=== PATIENT | male | born 1960 | race Caucasian/White ===

== ENCOUNTER 2019-04-06 06:47 | Day surgery (SDC) | payer BC ==
[~2019-04-06] VITALS: Ht 177.8 cm; Wt 80.5 kg
[~2019-04-06 06:47] MED LIST: ACIPHEX20 MG PO; LORTAB 5/500 501 TAB PO; MOTRIN 800800 MG/TAB PO; NORCO PO; NORVASC2.5 MG PO; NYQUIL; TYLENOL 500MG500 MG PO; VYTORIN; ZOCOR 40MG40 MG PO; vitorin
[2019-04-06 07:08] VITALS: BP 134/84; PULSE 69; TEMP 97.5
[2019-04-06] MEDS ORDERED: LIPITOR 40MG TA40 MG PO (07:28)
[2019-04-06] MEDS ORDERED: LEXAPRO 10MG10 MG PO (07:29)
[2019-04-06] MEDS ORDERED: GLUCOPHAGE500 MG/TAB PO (07:29)
[2019-04-06] MEDS ORDERED: NAPROSYN500 MG PO (07:30)
[2019-04-06] MEDS ORDERED: AMBIEN 10MG10 MG PO (07:30)
[2019-04-06 09:34] VITALS: BP 113/53; PULSE 73; TEMP 97.2
--- NOTE | 2019-04-06 09:34 | NUR ---
Patient brought back from OR via cart. Alert and oriented x4. Denies any pain or nausea. Vital signs stable. Watson set in place to right shoulder, clean and dry. Salena at bedside. Patient states he would like a water, coffee, muffin, and applesauce. Sip of water taken, tolerated well. Call delcid within reach, will continue to monitor.
[2019-04-06] MEDS ORDERED: ULTRAM 50MG TAB50 MG PO (09:39)
[2019-04-06] MEDS ORDERED: MOTRIN 600600 MG/TAB PO (09:39)
[2019-04-06 09:49] VITALS: BP 122/73; PULSE 66
--- NOTE | 2019-04-06 09:49 | NUR ---
Patient states he is feeling well. Tolerating food and drink without difficulty. Will contiue to monitor.
[2019-04-06 10:04] VITALS: BP 123/78; PULSE 65
--- NOTE | 2019-04-06 10:04 | NUR ---
Patient states he is ready to go home feeling well. Will continue to monitor.
--- NOTE | 2019-04-06 10:35 | NUR ---
Discharge instructions reviewed with patient and . All questions answered. IV removed, tolerated well. Patient to get dressed at this time.
--- NOTE | 2019-04-06 10:41 | NUR ---
Patient brought down to lobby via wheel chair, to be driven home by Salena.
== END 2019-04-06 11:35 | disposition home or self-care (01) ==
LOC: SDCO 06:47
DX: D18.01 Hemangioma of skin and subcutaneous tissue (principal); Z79.84 Long term (current) use of oral hypoglycemic drugs; E11.9 Type 2 diabetes mellitus without complications; E78.2 Mixed hyperlipidemia; F41.1 Generalized anxiety disorder; F51.05 Insomnia due to other mental disorder; Z88.6 Allergy status to analgesic agent
CPT/HCPCS: J1885; J2250; J2405; J2704; J3010; J7120

== ENCOUNTER → 2021-12-14 | Outpatient (CLI) | payer BC ==
[~2021-12-14] MED LIST changes: +AMBIEN 10MG10 MG PO; +GLUCOPHAGE500 MG/TAB PO; +LEXAPRO 10MG10 MG PO; +LIPITOR 40MG TA40 MG PO; +MOTRIN 600600 MG/TAB PO; +NAPROSYN500 MG PO; +ULTRAM 50MG TAB50 MG PO
== END ==
LOC: COL.RAD 10:08
DX: M75.121 Complete rotator cuff tear or rupture of right shoulder, not specified as traumatic (principal)

== ENCOUNTER → 2022-01-23 | Outpatient (CLI) | payer BC | LOC: COL.RAD 13:42 | DX: M25.541 Pain in joints of right hand (principal) | CPT/HCPCS: J3301; Q9967 ==

== ENCOUNTER → 2024-08-04 | Outpatient (CLI) | payer BC ==
[~2024-08-04] MED LIST changes: +ASPIRIN 81M81 MG/TA2 PO; +CEPHALEXIN500 M1 PO; +GLUCOPHAGE XR500 M1 PO; +MULTI VITAMINS1 TAB PO
== END ==
LOC: COL.RAD 09:28
DX: M75.112 Incomplete rotator cuff tear or rupture of left shoulder, not specified as traumatic (principal); S46.212A Strain of muscle, fascia and tendon of other parts of biceps, left arm, initial encounter; M19.012 Primary osteoarthritis, left shoulder